=== PATIENT | female | born 1990 | race Two or more races ===

== ENCOUNTER 2023-07-15 20:18 | Emergency (ER) | payer OTHER ==
[~2023-07-15] VITALS: Ht 165.1 cm; Wt 91.0 kg
[2023-07-15 20:40] VITALS: TEMP 98.4
[2023-07-15] MEDS: ONDANSETRON HCL 4 MG/2 ML VIAL IM ONE (20:45)
[2023-07-15 21:00] VITALS: PULSE 76; RESP 18; O2SAT 99
[2023-07-15 21:05] LABS: Basophils # (auto) 0 10 ^3/uL (0-0.2); Basophils % (auto) 0.3 % (0.0-2.0); Eosinophils # (auto) 0 10 ^3/uL (0-0.8); Eosinophils % (auto) 0.5 % (0.0-7.0); Hematocrit 42.2 % (36.0-46.0); Hemoglobin 14.1 g/dL (12.2-16.2); Lymphocytes # (auto) 1.5 10 ^3/uL (0.4-5.4); Lymphocytes % (auto) 14.5 % (10.0-50.0); Mean Corpuscular Hemoglobin 30.2 pg (28.0-32.0); Mean Corpuscular Hgb Conc. 33.5 g/dL (32.0-36.0); Mean Corpuscular Volume 90.3 fL (80.0-100.0); Monocytes # (auto) 0.5 10 ^3/uL (0-1.3); Monocytes % (auto) 4.6 % (0.0-12.0); Neutrophils # (auto) 8.1 10 ^3/uL (1.6-8.6); Neutrophils % (auto) 80.1 % (37.0-80.0); Red Blood Cells 4.67 10^6/uL (4.0-5.20); Red Cell Distribution Width 13.2 % (11.8-14.3); White Blood Cell 10.1 10^3/uL (4.4-10.8)
[2023-07-15 21:14] LABS: Chloride 105 mmol/L (98-107); Sodium 135 mmol/L (136-145)
[2023-07-15 21:15] LABS: Anion Gap 4 (5-15); Calcium 9.7 mg/dL (8.5-10.1); Carbon Dioxide 26 mmol/L (20-30)
[2023-07-15 21:20] LABS: BUN/Creatinine Ratio 6.4 (10.0-20.0); Blood Urea Nitrogen 5 mg/dL (9-23); Glucose 113 mg/dL (74-106)
[2023-07-15] MEDS: ACETAMINOPHEN 500 MG TAB PO ONE (21:20)
[2023-07-15 23:06] VITALS: BP 107/71; PULSE 73; RESP 16; O2SAT 99
== END 2023-07-15 23:37 | disposition home or self-care (01) ==
LOC: ER 20:18
DX: O03.9 Complete or unspecified spontaneous abortion without complication (principal); R10.2 Pelvic and perineal pain
CPT/HCPCS: 36415; 76801; 76817; 80048; 84702; 85025; J2405